=== PATIENT | male | born 1965 | race Caucasian/White ===

== ENCOUNTER 2017-09-03 15:51 | Outpatient (RCR) | payer BC ==
[~2017-09-03 15:51] MED LIST: NO HOME MEDICATIONS
== END 2017-11-01 15:16 | disposition home or self-care (01) ==
LOC: WSC 15:51 → WSPT 16:00 → WSC 11-01 15:16
DX: Z01.818 Encounter for other preprocedural examination (principal); M75.101 Unspecified rotator cuff tear or rupture of right shoulder, not specified as traumatic

== ENCOUNTER 2017-11-06 15:15 | Outpatient (RCR) | payer BC | END 2017-12-18 | disposition home or self-care (01) | LOC: WSPT | DX: Z47.89 Encounter for other orthopedic aftercare (principal) ==

== ENCOUNTER → 2018-02-03 | Outpatient (CLI) | payer BC ==
[2018-02-03 13:01] LABS: HEMOGLOBIN 13.7 g/dl (13.5-18.0); MEAN CELL VOLUME 93 fl (80.0-100.0); MEAN CORPUSCULAR HEMOGLOBIN 32 pg (27.0-31.0); MEAN CORPUSCULAR HGB CONC 34 g/dl (33.0-37.0); MEAN PLATELET VOLUME 8.6 fl (7.4-10.4); PLATELET COUNT 265 K/mm3 (130-400); REDCELL DISTRIBUTION WIDTH-CV 12.8 % (11.5-14.5)
== END ==
LOC: COL.CARD 12:10
PROVIDERS: Urology
DX: N40.1 Benign prostatic hyperplasia with lower urinary tract symptoms (principal)

== ENCOUNTER 2018-02-05 07:29 | Day surgery (SDC) | payer BC ==
[2018-02-05] VITALS (11 sets, daily range): BP systolic 108–142; BP diastolic 51–91; PULSE 50–63; TEMP 97.6–98.7
[~2018-02-05] VITALS: Ht 185.4 cm; Wt 95.5 kg
[2018-02-06 04:28] VITALS: BP 113/57; PULSE 58; TEMP 98.5
[2018-02-06 07:52] VITALS: BP 123/66; PULSE 52; TEMP 97.5
[2018-02-06] MEDS ORDERED: ROXICODONE 55 MG/TAB PO (12:45)
[2018-02-06 13:06] VITALS: BP 140/71; PULSE 50; TEMP 97.1
== END 2018-02-06 14:30 | disposition home or self-care (01) ==
LOC: SDCO 07:29 → SURG 14:59 → SDCO 02-06 14:30
DX: K40.91 Unilateral inguinal hernia, without obstruction or gangrene, recurrent (principal); K42.9 Umbilical hernia without obstruction or gangrene; N40.1 Benign prostatic hyperplasia with lower urinary tract symptoms; R35.0 Frequency of micturition; R35.1 Nocturia; R39.15 Urgency of urination; R39.12 Poor urinary stream; N13.8 Other obstructive and reflux uropathy; F17.220 Nicotine dependence, chewing tobacco, uncomplicated; Z83.3 Family history of diabetes mellitus; Z84.1 Family history of disorders of kidney and ureter; Z80.1 Family history of malignant neoplasm of trachea, bronchus and lung
CPT/HCPCS: OP; C1781; J0690; J1100; J1885; J2405; J2704; J2710; J3010; J7120

== ENCOUNTER → 2023-09-10 | Outpatient (CLI) | payer BC ==
[~2023-09-10] MED LIST changes: +ROXICODONE 55 MG/TAB PO
== END ==
LOC: COL.RAD 09:04
DX: R55 Syncope and collapse (principal); R53.83 Other fatigue; R06.09 Other forms of dyspnea